=== PATIENT | female | born 1990 | race Caucasian/White ===

== ENCOUNTER 2020-08-24 01:12 | Emergency (ER) | payer BC ==
[~2020-08-24] VITALS: Ht 170.2 cm; Wt 54.4 kg
[2020-08-24 01:18] VITALS: BP 128/85
[2020-08-24] MEDS ORDERED: TDAP [DIPH/PERTUSSIS/TET] 0.5 ML VIAL IM ONE ×2 (01:29→01:30)
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
--- NOTE | 2020-08-24 01:47 | NUR ---
PATIENT'S WOUND AREA CLEANED W/ NORMAL SALINE. NO ACTIVE BLEEDING. APPLIED DERMABOND TO THE SITE.
--- NOTE | 2020-08-24 01:49 | NUR ---
Patient discharged to home in stable condition. Written and verbal after care instructions given. Patient verbalizes understanding of instruction.
== END 2020-08-24 01:50 | disposition home or self-care (01) ==
LOC: ER 01:20
DX: S61.011A Laceration without foreign body of right thumb without damage to nail, initial encounter (principal); W25.XXXA Contact with sharp glass, initial encounter; Y93.89 Activity, other specified; Y92.89 Other specified places as the place of occurrence of the external cause; Y99.8 Other external cause status
CPT/HCPCS: 90715